=== PATIENT | female | born 1960 | race Two or more races ===

== ENCOUNTER 2018-02-19 13:55 | Emergency (ER) | payer SELFPAY ==
[~2018-02-19] VITALS: Ht 162.6 cm; Wt 90.9 kg
[2018-02-19 14:09] VITALS: BP 152/85
== END 2018-02-19 15:28 | disposition home or self-care (01) ==
LOC: ED 15:22
DX: S80.02XA Contusion of left knee, initial encounter (principal); W01.0XXA Fall on same level from slipping, tripping and stumbling without subsequent striking against object, initial encounter; Y93.01 Activity, walking, marching and hiking; Y92.89 Other specified places as the place of occurrence of the external cause; Y99.8 Other external cause status
CPT/HCPCS: 29530; 99283